=== PATIENT | female | born 1990 | race Caucasian/White ===

== ENCOUNTER → 2020-03-19 14:08 | Outpatient (CLI) | payer OTHER, SELFPAY ==
[2020-03-19 15:46] LABS: Absolute Lymphocyte Count 1.75 X10^3/uL (0.83-4.51); Absolute Neutrophil Count 8.5 X10^3/uL (2.0-7.7); Basophil# 0.04 X10^3/uL; Basophil% 0.4 % (0-1); Eosinophil# 0.08 X10^3/uL; Eosinophils% 0.7 % (0-5); Hematocrit 38.2 % (37-47); Lymphocyte # 1.75 X10^3/ul (4.0); Lymphocyte % 15.5 % (19-41); Mean Corpuscular Volume 85.1 fL (81-99); Mean Platelet Vol. 10.6 fl (6.2-12.0); Monocyte# 0.82 X10^3/uL; Monocyte% 7.3 % (0-10); NRBC Flagged by Analyzer 0 % (0-5); Neutrophil # 8.54 X10^3/uL (2.7-7.7); Neutrophil % 75.8 % (47-70); Platelet Count 263 K/mm3 (150-450); RBC Distribution Width CV 12.7 % (11.6-14.6); RBC Distribution Width SD 38.6 fl (35.1-43.9); Red Blood Count 4.49 M/mm3 (4.2-5.4); White Blood Count 11.3 K/mm3 (4.4-11.0)
[2020-03-19 15:49] LABS: Color, Urine Yellow (Yellow); Glucose, Dipstick Normal (Normal); Ketone-Dipstick Negative (Negative); Leukocyte Esterase-Dipstick Negative /ul (Negative); Nitrite-Dipstick Negative (Negative); Occult Blood-Urine Negative /ul (Negative); Protein-Dipstick Negative (Negative); Urine Bilirubin Dipstick Negative (Negative); Urine Clarity Clear (Clear); Urine Urobilinogen Normal (Normal)
[2020-03-19 16:03] LABS: Thyroid Stim Hormone (TSH) 0.41 uIU/mL (0.358-3.74)
[2020-03-19 21:57] LABS: Chlamydia Trachomatis by PCR Negative (Negative); Neisserai gonorrhoeae by PCR Negative (Negative); Probe Check PASS; Sample Adequacy Control PASS; Specimen Processing Control PASS
[2020-03-20 09:38] LABS: HIV - WCH Non-Reactive (Nonreactive); Hepatitis B Surface Antigen Non-Reactive (Nonreactive); Hepatitis C Antibody Non-Reactive (Nonreactive); Rubella IgG 302.2 IU/mL
[2020-03-21 21:57] LABS: Prenatal RPR NONREACTIVE (NONREACTIVE)
[2020-03-26 05:30] LABS: HPV Reflexed? NOT INDICATED
== END ==
PROVIDERS: Visit Provider Obstetrics & Gynecology
DX: Z34.81 Encounter for supervision of other normal pregnancy, first trimester (principal)
CPT/HCPCS: 36415; 81002; 84443; 85025; 86703; 86762; 86803; 87340; 87491; 87591; 88175; G0145

== ENCOUNTER → 2020-08-09 13:41 | Outpatient (CLI) | payer OTHER, SELFPAY ==
[2014-08-31 19:55] VITALS: BMI 25.4
[2020-08-09 15:56] LABS: Hematocrit 36.6 % (37-47); Hemoglobin 12.4 g/dL (12.0-15.0); Mean Corp Hgb Conc 33.9 g/dL (32-36); Mean Corpuscular Hgb 29.5 pg (27.0-32.0); Mean Corpuscular Volume 87.1 fL (81-99); Mean Platelet Vol. 11.2 fl (6.2-12.0); Platelet Count 208 K/mm3 (150-450); RBC Distribution Width CV 12.8 % (11.6-14.6); RBC Distribution Width SD 40.3 fl (35.1-43.9); White Blood Count 12.3 K/mm3 (4.4-11.0)
[2020-08-09 16:16] LABS: Glucose Challenge Gest 1H 50g 91 mg/dL (70-140)
== END ==
PROVIDERS: Visit Provider Obstetrics & Gynecology
DX: Z34.83 Encounter for supervision of other normal pregnancy, third trimester (principal)
CPT/HCPCS: 36415; 82950; 85027; 86850

== ENCOUNTER → 2020-10-11 11:32 | Outpatient (CLI) | payer OTHER, SELFPAY | PROVIDERS: Referring Provider Obstetrics & Gynecology; Visit Provider Obstetrics & Gynecology | DX: Z03.818 Encounter for observation for suspected exposure to other biological agents ruled out (principal) | CPT/HCPCS: 87635; C9803; U0005; U0003 ==

== ENCOUNTER 2020-10-15 09:20 | Inpatient (IN) | payer SELFPAY, OTHER ==
--- NOTE | 2020-10-14 17:12 | PCM.HP.BLA ---
History and Physical Date of Admission: 10/15/20 [facility] [place]ORY AND PHYSICAL (10/14/2020) Name: RILEY DOTY History of This : This is a 30-year-old 2 para 1 who presents for repeat section at 39+ weeks gestation. care has been uneventful. OB Physician: ESTER 's Physician: Rigo Wood ...................................................................... : 1990 Age: 30 Address: [address] [place] [address] Phone: (h) [phone] (o) [phone] Insurance Carrier: [facility] [id number] Emergency Contact: SURINDER [phone] ...................................................................... Final UNA: 10/20/20 By Ultrasound: 9 weeks 2 days PARITY: (G-Total Pregnancies P-Fullterm,Premature,Induced AB,Spont AB, Ectopics, Multiple,Living) UNA CONFIRMATION: By LMP: 01/19/20 Initial Exam: 10/25/20 Final UNA: 10/20/20 OB PROBLEM LIST: AB-NEG!! Complete Previa at 20 weeks 5 days --marginal at 28 weeks Hx of headaches/migraines Prior for stress at 1 cm dilation; considering -- plan repeat ALLERGIES: NKDA MEDICATIONS: Gummies 400 mcg-35 mg-25 mg-5 mg chewable tablet daily SOCIAL HISTORY: Smoking - Never Alcohol Use - denies drinking Diet - moderate, balanced diet Lifestyle - low stress lifestyle and Exercise - regular Job Description - Housewife Illicit Drug Use - denies use of street drugs Sexual Activity - Residence - lives with Place of - [place]. [place] Spouse-Sig Other Name - Surinder Doty Spouse-Sig Other Occupation - [employer] Children Name(s) - Jonah Doty PRIOR DELIVERY HISTORY DEL DATE GEST LAB WT LB WT OZ TYPE ANES LABOR TX 27 Aug 18 41 0 7 3 C-Sec Spinal No ANTEPARTUM FLOW CHART VISIT GE RTC FU F F HI U U DATE WK MD WKS HT PN HR M SS BP ED WT HI GL D EF ST __ ____ ___ __ __ ___ __ __ __ ___ __ __ __ ___ __ Oct JMW 3 38 + + 108/72 sl 164 ne ne Sep JMW 1 36 + + 116/58 sl 162 - - Sep JMW 1 36 + + 102/58 sl 161 tr - 10 Sep JMW 1 34 + + 130/76 sl 160 - - 03 Sep JMW 1 34 + + 110/66 0 159 - - Aug JMW de 104/56 0 156 - - 05 Sep 02 JMW 3 29 + + 120/60 0 156 tr - 07 Jul 29 JMW 4 25 + + 110/80 sl 154 03 Jun 24 JMW 4 20 + + 114/78 sl 151 tr - 13 Apr 16 JMW 6 14 + O 110/64 0 142 tr - ANTEPARTUM NOTE(S): Oct 11 2020: Good FM Oct 04 2020: Good FM Sep 24 2020: LARC Sep 13 2020: Feeling Well, Good FM Sep 06 2020: decreased FM, Ck NST Aug 29 2020: R NST with active FM Aug 09 2020: feeling well. Glucola done and rhogam given. AM Jul 11 2020: feeling well. Glucola given. Jun 07 2020: feeling well., u/s with complete previa Apr 16 2020: some FM COMPREHENSIVE ANTEPARTUM NOTE(S): Sep 24 2020: Riley is here for a PNV. Good FM. SL edema in feet. No concerns voiced at this time. LARC reviewed and declined. No GBS per Dr. Lynn due to repeat . MK Sep 06 2020: Riley is here for a PNV. FM is present, states that she rarely feels kicks. Baby's movements are described as twitches. Denies edema. No other concerns expressed. MK Sep 06 2020: NST for dec FM, reactive, read per Dr. Lynn. AW Aug 29 2020: Riley is here for NST as she has not felt mvmt since last night. She may have felt something on her drive to office? [place] placed on abdomen and FHT's easily auscultated. NST is reactive with active FM and good variability. She will call if any other issues with decreased FM. LMT Apr 16 2020: Riley is here for visit. Concerned with R side pain. States she has R ovarian cyst that causes her discomfort with long distance walking or when doing laundry or other jobs that require lifting. U/S report reviewed with corpus luteal cyst of 2.4 cm. I don't think this should cause signficant discomfort for her, maybe round ligament pain? Exercise as tolerated. Plans trip where she will be doing hiking. Reviewed labs WNL, blood type AB negative and Rhogam at 28 weeks. LMT Apr 05 2020: TELEHEALTH NOB VISIT. Riley is a 29 year old with an UNA of 10/20/2020, current GA is 11 w 5 d. She resides with he , Surinder, and their son who was delivered by C/S in 2013. Past history updated. She states that she does not think that she had much labor at all, my back just hurt, and that the baby had non-reassuring FHT's, so she had a C/S. She is considering trying to have a , but is still uncertain; Riley will discuss this further with Dr. Lynn. Delivery at [facility] is planned and she will breastfeed. She states that she nursed her son initially, but at a week old he had respiratory distress and was on a ventilator at [facility] for several days, and her milk supply was not sufficient after that. Office practice patterns reviewed. labs were drawn at a prior visit. Emergencies/danger signs to report, round ligament pain, reporting a suspected UTI, and common OTC medications approved/not approved for use during reviewed. Riley reports that she is feeling pretty well today, but most days she has N/V. Reviewed measures that may help minimize nausea, including carb rich foods, small frequent meals with protein included throughout the day, adequate water hydration of at least one gallon per 24 hours, motion sickness bracelets, Vitamin B6 50 mg twice a day, and Unisom at bedtime. She states that she took Zofran for nausea with her son, but is not wanting to try this yet. At this point, Riley states that she is unable to take a vitamin; encouraged to try two Children's Tripp's Chewable multivitamins a day until nausea resolves. She states that she will likely decline AFP and CF testing. She states that she has a cousin with special needs, and an aunt and uncle born with heart defects who at ages 16 and 2 days respectively. She states that she has experienced periods of mild depression and anxiety in the past, but feels she is doing well at this time. EPDS on 03/19/2020 = 0. Physical activity and lifting restrictions for reviewed. Water/caloric/dietary needs for discussed, including recommended weight gain, limiting empty calories, limiting caffeine to one cup a day, and food safety. She and her family are planning a trip to [place] this month; reviewed that she needs to make sure she takes rest breaks, stays well hydrated, and COVID 19 precautions reviewed; she will discuss any further restrictions with Dr. Lynn at he next PNV. Riley is a lifelong non-smoker, and denies use of drugs or ETOH. She states that she understands all information provided during 45 minute NOB telephone visit, and has no questions following same. AW New Mar 19 2020: Riley is being seen for missed menses visit. . UPT in office is positive. LMP 01/19/20. Pt is about 8 weeks and 4 days. UNA 10/25/20. Pt has been experiencing nausea and states it is better when she eats a little bit at a time throughout the day. Pt also states about 2-3 years ago she went to [facility] ER due to heart palpitations. She has been experiencing the heart palpitations more since being . She also states that she has been having some cramping. information reviewed and given to pt. Last pap 2014 WNL. Pap and cultures due today. Medications and allergies are up to date. PHQ-9 total is 0. AM Mar 19 2020: ok REVIEW OF SYSTEMS: GENERAL - Denies fever, or chills SKIN - Denies rash, new skin lesions, or change in moles EYES - Denies blurred vision, or change in visual acuity EARS - Denies ear pain, or difficulty hearing NOSE - Denies nasal congestion, discharge, or bleeding MOUTH - Denies sore throat, or difficulty swallowing NECK - Denies pain or swelling RESPIRATORY - Denies shortness of breath, cough, wheezing CARDIOVASCULAR - Denies palpitations, chest pain, orthopnea, PND, peripheral edema, syncope or claudication GASTROINTESTINAL - Denies nausea, vomiting, diarrhea, constipation, Denies abdominal pain, melena and or bright red blood GENITOURINARY - Denies dysuria, frequency of urination, urgency, or hesitancy MUSCULOSKELETAL - Denies joint or muscle pain, or back pain NEUROLOGICAL - Denies localized numbness, weakness, or tingling PSYCHIATRIC - Denies depression, anxiety, substance abuse or suicide attempts ENDOCRINE - Denies heat or cold intolerance, weight loss or gain, increasing thirst HEMATO-IMMUNOLOGIC - Denies easy bruising, bleeding, oral ulcerations or recurrent infections GENETICS SCREENING: Age 35+ years: No Thalassemia: No Neural Tube Defect: No Down Syndrome: No SILVIO-SACHS: No Sickle Cell Disease: No Hemophilia: No Musc. Dystrophy: No Cystic Fibrosis: No-declines screening [place] Chorea: No Mental Retardation: Yes, Cousin Fragile X: No Other genetic: Yes, Uncle/Aunt Heart Defect Other defects: Yes, Uncle/Aunt Heart Defect SABs/still births: No Drugs since LMP: No INFECTION HISTORY: High risk AIDS: No High risk Hepatitis: No Exposed to TB: No Exposed to Herpes: No Rash/viral illness since LMP: No History of STD: No MENSTRUAL HISTORY: *Menses Amount/Duration: 6 daysMenses Regularity: RegularFrequency: monthlyMenarche (Age Onset): 13* PAST SUMMARY: PARITY: 1. Total Pregnancies............ 2 2. Full Term Pregnancies........ 1 3. Premature.................... 0 4. Abortions - Induced.......... 0 5. Abortions - Spontaneous...... 0 6. Ectopics..................... 0 7. Multiple Births.............. 0 8. Living Children.............. 1 PAST #1: Date of :.................. 08/31/14 Gestation Weeks:................ 41 Length of labor(hours):......... 0 Sex:............................ M Weight-lbs:............... 7 Weight-oz:................ 3 Type of Delivery:............... C-Sect Type of Anesthesia:............. Spinal Place of Delivery:.............. [place] Treatment of Labor?:.... No Comment: NRFHT PHYSICAL EXAMINATION General Appearence: 30 yo female in no acute distress Vital Signs: AF, VSS Heart: RRR without rubs or gallops Lungs: CTA x 2 Breasts: deferred Abdomen: gravid Pelvis: Cervix: Presentation: cephalic Station: Fetus: Size: AGA Movement: present Heart: present Labs for : RILEY DOTY since 01/24/2020 ORDER DATEIN DESCRIPTION VALUE UNITS RANGE A+ COMMENT COVID 19, PCR SENDOUT 10/11/20 NOTE Original Ordering Provider: Reina Lynn COVID-19,PCR Not Detected Not Detected This nucleic acid amplification test was developed and its performance characteristics determined by [facility]. Nucleic acid amplification tests include PCR and TMA. This test has not been FDA cleared or approved. This test has been authorized by FDA under an Emergency Use Authorization (EUA). This test is only authorized for the duration of time the declaration that circumstances exist justifying the authorization of the emergency use of in vitro diagnostic tests for detection of SARS-CoV-2 virus and/or diagnosis of COVID-19 infection under section 564(b)(1) of the Act, 21 U.S.C. 360bbb-3(b) (1), unless the authorization is terminated or revoked sooner. When diagnostic testing is negative, the possibility of a false negative result should be considered in the context of a patient's recent exposures and the presence of clinical signs and symptoms consistent with COVID-19. An individual without symptoms of COVID-19 and who is not shedding SARS-CoV-2 virus would expect to have a negative (not detected) result in this assay. ANTIBODY SCREEN 08/09/20 [facility]~[address] [place], [address]~ ANTIBODY SCREEN NEGATIVE N Reviewed by REINA GLUCOSE CHALLENGE GEST 1H 50G 08/09/20 NOTE Original Ordering Provider: Reina Lynn GLU GEST 50G 1H 91 mg/dL 70-140 Reviewed by REINA CBC-COMPLETE BLOOD CNT NO DIFF 08/09/20 NOTE Original Ordering Provider: Reina Lynn WBC 12.3 K/mm3 4.4-11.0 H RBC 4.20 M/mm3 4.2-5.4 HGB 12.4 g/dL 12.0-15.0 HCT 36.6 % 37-47 L MCV 87.1 fL 81-99 MCH 29.5 pg 27.0-32.0 MCHC 33.9 g/dL 32-36 RDW CV 12.8 % 11.6-14.6 RDW SD 40.3 fl 35.1-43.9 PLT 208 K/mm3 150-450 MPV 11.2 fl 6.2-12.0 Reviewed by REINA RPR 03/19/20 NOTE Original Ordering Provider: Reina Lynn RPR NONREACTIVE NONREACTIVE Reviewed by REINA HEPATITIS C ANTIBODY 03/19/20 NOTE Original Ordering Provider: Reina Lynn HEPATITIS C AB Non-Reactive Nonreactive Non Reactive: < 0.8 Equivocal: >/= 0.8 to < 1.0 Reactive: >/= 1.0 The CDC recommends that a reactive/equivocal HCV antibody result be followed up by the HCV Nucleic Acid Amplification test (375954) Reviewed by REINA HEPATITIS B SURFACE ANTIGEN 03/19/20 NOTE Original Ordering Provider: Reina Lynn HEPB SURFACE AG Non-Reactive Nonreactive Reviewed by REINA HIV - [facility] 03/19/20 NOTE Original Ordering Provider: Reina Lynn HIV - [facility] Non-Reactive Nonreactive Reviewed by REINA RUBELLA IGG 03/19/20 NOTE Original Ordering Provider: Reina Lynn RUBELLA IGG 302.2 IU/mL Antibody results Interpretation of Immune Status < 5 IU/ml Presumed Non-immune 5 - < 10 IU/ml Equivocal > or = 10 IU/ml Presumed Immune Reviewed by REINA T AND S-NO CHARGE W/PNP 03/19/20 Reason for Type AND Screen/Red Cells: Surgery? N [facility]~[address] [place], [address]~ BLOOD TYPE GEL AB NEGATIVE N AB SCREEN GEL NEGATIVE N Reviewed by REINA THYROID STIM HORMONE (TSH) 03/19/20 NOTE Original Ordering Provider: Reina Lynn TSH 0.41 uIU/mL 0.358-3.74 Reviewed by REINA URINALYSIS, ROUTINE (DIPSTICK) 03/19/20 NOTE Original Ordering Provider: Reina Lynn COLOR Yellow Yellow CLARITY Clear Clear GLUCOSE, UR Normal mg/dl Normal BILIRUBIN URINE Negative mg/dL Negative KETONE UR Negative mg/dl Negative SP.GR. DIPSTX 1.020 1.002-1.030 PH UR 6.0 5.0 - 8.0 PROT DIPSTX Negative mg/dl Negative UROBILI Normal mg/dl Normal NITRITE UR Negative Negative OCCULT BLOOD-UR Negative /ul Negative LEUK ESTERASE Negative /ul Negative Reviewed by REINA CBC W/DIFF, AUTOMATED 03/19/20 NOTE Original Ordering Provider: Reina Lynn WBC 11.3 K/mm3 4.4-11.0 H RBC 4.49 M/mm3 4.2-5.4 HGB 13.0 g/dL 12.0-15.0 HCT 38.2 % 37-47 MCV 85.1 fL 81-99 MCH 29.0 pg 27.0-32.0 MCHC 34.0 g/dL 32-36 RDW CV 12.7 % 11.6-14.6 RDW SD 38.6 fl 35.1-43.9 PLT 263 K/mm3 150-450 MPV 10.6 fl 6.2-12.0 NEUT% 75.8 % 47-70 H LY% 15.5 % 19-41 L MONO% 7.3 % 0-10 EO% 0.7 % 0-5 BASO% 0.4 % 0-1 IM GRAN % 0.300 % 0.0-0.9 IG% - Immature Granulocytes (promyelocytes, myelocytes and metamyelocytes) > 1% indicates that a LEFT SHIFT is Present. ABSOLUTE NEUT 8.5 X10 3/uL 2.0-7.7 H ABSOLUTE LYMPH 1.75 X10 3/uL 0.83-4.51 NRBC, FLAGGED 0 % 0-5 Reviewed by REINA HERNANDEZ IG W/REFLEX HR HPV APTIMA 03/19/20 NOTE Original Ordering Provider: Reina Lynn DIAGN . NEGATIVE FOR INTRAEPITHELIAL LESION OR MALIGNANCY. ADEQ . Satisfactory for evaluation. Endocervical and/or squamous metaplastic cells (endocervical component) are present. PERFORM . Michelle Kat, Tower Truck Driver (ASCP) TEST METHOD . This liquid based ThinPrep(R) pap test was screened with the use of an image guided system. COMM . . PAPSMR . The Pap smear is a screening test designed to aid in the detection of premalignant and malignant conditions of the uterine cervix. It is not a diagnostic procedure and should not be used as the sole means of detecting cervical cancer. Both false-positive and false-negative reports do occur. HPV RFLX . The HPV DNA reflex criteria were not met with this specimen result therefore, no HPV testing was performed. Performed at: [facility] [id number] Science Liaison: Nasrin Almonte MD, Phone: [phone] Reviewed by REINA GOLD/ELISEO [facility] BY PCR 03/19/20 NOTE Original Ordering Provider: [facility]ina Lynn [facility] PCR Negative Negative NG BY PCR Negative Negative Reviewed by REINA Impression /Plan: 39+ week intrauterine with a prior section. Plan repeat . Preparations in progress for delivery.
[2020-10-15] VITALS (18 sets, daily range): BP systolic 96–121; BP diastolic 44–74; PULSE 60–94; RESP 16–76; TEMP 36.3–36.9; O2SAT 94–100; BMI 29.5
[2020-10-15] MEDS: Lactated Ringers 1,000 ML 999 ML IV (10:10)
[2020-10-15 10:23] LABS: Absolute Lymphocyte Count 1.52 X10^3/uL (0.83-4.51); Absolute Neutrophil Count 10.8 X10^3/uL (2.0-7.7); Basophil# 0.02 X10^3/uL; Basophil% 0.1 % (0-1); Eosinophil# 0.11 X10^3/uL; Eosinophils% 0.8 % (0-5); Hematocrit 36.6 % (37-47); Hemoglobin 12.6 g/dL (12.0-15.0); Lymphocyte # 1.52 X10^3/ul (4.0); Lymphocyte % 11.3 % (19-41); Mean Corp Hgb Conc 34.4 g/dL (32-36); Mean Corpuscular Hgb 29.1 pg (27.0-32.0); Mean Corpuscular Volume 84.5 fL (81-99); Mean Platelet Vol. 11.3 fl (6.2-12.0); Monocyte# 0.95 X10^3/uL; Monocyte% 7.1 % (0-10); NRBC Flagged by Analyzer 0 % (0-5); Neutrophil # 10.75 X10^3/uL (2.7-7.7); Neutrophil % 80.1 % (47-70); Platelet Count 222 K/mm3 (150-450); RBC Distribution Width CV 13.4 % (11.6-14.6); RBC Distribution Width SD 41.4 fl (35.1-43.9); Red Blood Count 4.33 M/mm3 (4.2-5.4); White Blood Count 13.4 K/mm3 (4.4-11.0)
[2020-10-15] MEDS: Acetaminophen 500 MG Tablet 1000 MG PO ×2 (10:46→20:33)
[2020-10-15] MEDS: Lactated Ringers 1,000 ML 150 ML IV (11:13)
[2020-10-15] MEDS: Sodium Citrate/Citric Acid 30 ML UDC PO (11:53)
[2020-10-15] MEDS: Cefazolin 2 GM in 0.9% Normal Saline 100 ML IV (12:00)
--- NOTE | 2020-10-15 12:08 | PCM.OPRPT ---
Delivery Classification: Scheduled Final UNA: 10/20/20 Final UNA Source: US <20 weeks Gestational age: 39 Weeks and 2 Days specification manager: Oswald Porter Type of Anesthesia:: Spinal - with Duramorph Implants Used: None Date of Procedure: 10/15/20 Pre-Operative Diagnosis: Prior Section Post-Operative Diagnosis: Prior Section Description of Procedure: Surgeon: Hector Lynn MD, FACOG Anesthesia: Héctor Sahni CRNA Procedure: Repeat Low Transverse Cervical Caesarean Section Findings: Viable male with Apgars of 8/9 in transverse back down lie with shoulder presentation delivered cephalic with clear amniotic fluid and normal three-vessel placenta. Indication: This is a 30-year-old who presents for her second at 39+ weeks gestation. care has otherwise been uneventful. The patient has been counseled regarding the risk and indications of this procedure including the possibility of bleeding infection and injury to surrounding structures such as bowel bladder. All questions were answered. Procedure: Patient was taken to the operating room where after spinal anesthesia was placed, the patient was prepped and draped in usual sterile fashion and a Lbaoy catheter was placed. The abdomen was entered through the patient's prior Pfannenstiel incision and peritoneum was entered bluntly. After developing a bladder flap on the lower uterine segment a low transverse incision was made on the uterus and head was delivered onto the operative field the nose mouth and oropharynx were bulb suctioned. Subsequently a viable male was born with Apgars of 8/9. The infant was noted to cry move all extremities vigorously on the operative field. The umbilical cord was doubly clamped and ligated and handed to the nursery personnel who were present for the delivery. Placenta was delivered and noted to be 3 vessels and normal. Uterus was exteriorized and remaining placental tissue was removed. The uterus was then closed in 2 layers first with running locked 0 Vicryl suture followed by a second imbricating layer with 0 Vicryl suture. 0 Vicryl suture was then used in a horizontal mattress interrupted fashion to affect final hemostasis of the uterine incision line. Normal fallopian tubes and ovaries were visualized and the uterus was returned to the pelvis. Hemostasis was noted and rectus abdominis muscles were reapproximated in the midline with interrupted Number 0 Vicryl suture in a horizontal mattress fashion. Fascia was closed with running Number 1 PDS Strata fix suture. Subcutaneous tissue was irrigated with copious amounts of saline solution and then closed with running 3-0 Vicryl suture. Skin was closed with 4-0 monocryl suture in a running subcuticular fashion. Steri strips and a Mepilex dressing were placed across the incision. The patient tolerated the procedure well and was taken to the recovery room in satisfactory condition. Sponge, needle, and instrument counts were all reportedly correct. EBL was less than 500 cc. Ancef 2 gms IV was given prior to the procedure. Spicemen to Pathology: None Complications: None Amniotic Fluid Description: Clear Placenta [facility]position: [facility] Drain: [place] to straight drain Fluids Replaced: Crystalloid Cord Entanglement: None Cord Vessel Description: 3 Vessels Esitmated Blood Loss (ml): 500 cc Gender: Male (1 minute): 8 (5 minute): 9 Antibiotic Given: Ancef 2 grams IV x1 Pt instructed on risks of surgery: Bleeding, Infection, Injury to surrounding structure(s) including bowel and bladder Complications: None - Admit VTE Documentation VTE Present on Admission: Yes VTE Mechan Device Prophylaxis: SCD's
--- NOTE | 2020-10-15 12:11 | DCINST_ITS ---
Discharge Diet: No Restrictions Discharge Activity: May not drive while taking narcotic pain medications., May Shower, May Take a Tub Bath May resume sexual activity in: 4-6 weeks Lifting Restrictions: 20 pounds Additional Activity Instructions:: Nothing in the vagina for 4-6 weeks. You may return to work/school in 6 weeks. Call your doctor if your incision/area has: Continuous Slow Oozing, Sudden Increased Bleeding, Increased Pain/ Swelling, Increased Redness, Foul Smelling Discharge Call your doctor if you observe: Fever of 101 or Higher, Inability to urinate, Inability to have a bowel movement, Using more than one pad per hour Additional Instructions: If you experience any of the following, contact your healthcare provider. * Bleeding that soaks a pad every hour for 2 hours * Fever 100.4 or higher * Unrelieved incision or abdominal pain * Swelling, redness, discharge or bleeding from your incision or episiotomy site * Your incision begins to separate * Problems urinating (including inability to urinate or burning while urinating). * Visual changes * Severe headache * Flu-like symptoms * Pain or redness in one of both of your breasts * Pain, warmth, tenderness or swelling in your legs, especially the calf area * Frequent nausea and vomiting * Symptoms of depression or anxiety If you experience any of the following, call 911 or go to the nearest Emergency Room. * Chest pain * Problems breathing * Seizure activity * Partial or complete paralysis of a body part, slurred speech, weakness or drooping of the face, or a sudden inability to walk or hold your balance Allergies/Adverse Reactions: Allergies No Known Allergies Allergy (Verified 10/15/20 10:01) Medications to take at Discharge Vits [Prenatabs FA ] 1 tablet PO DAILY 08/31/14 Docusate Sodium [Colace] 100 mg PO BID PRN PRN #60 cap 10/15/20 Oxycodone [Oxyir] 5 mg PO Q6H PRN PRN 7 Days #20 tablet 10/15/20 The following prescriptions were given: Docusate Sodium [Colace] 100 mg PO BID PRN PRN #60 cap PRN Reason: Constipation Transmission Status: Pending to [id number] Oxycodone [Oxyir] 5 mg PO Q6H PRN PRN 7 Days #20 tablet PRN Reason: Pain Score 6-10 Transmission Status: Received by [id number] Follow-Up: Call to make an appointment with your doctor for an incision check in 1-2 weeks. You will also need a 6 week post- follow up appointment. Test results from this visit will be discussed in further detail at your follow- up appointment, if applicable. Please Follow Up With: Hector Lynn MD - [phone] When: Call to make an appointment for an incision check in 2 weeks. Primary Care Physician: Care Physician,No Primary [Primary Care Provider] -
[2020-10-15] MEDS: Ketorolac 30 MG/ML Syringe IV ×2 (12:44→17:25)
[2020-10-15] MEDS: Oxytocin 30 units/NS 500 ml 30 UNITS/500 ML IV.SOLN 167 UNITS IV (13:20)
[2020-10-15] MEDS: proCHLORPERazine 10 MG/2 ML Vial IV (14:03)
[2020-10-15] MEDS: Lactated Ringers 1,000 ML 100 ML IV (17:26)
[2020-10-15] MEDS: Cefazolin 1 GM/50 ML BAG IV (20:19)
[2020-10-15] MEDS: 0.9% Saline Lock 10 ML Syringe IV (20:55)
[2020-10-16 00:05] VITALS: BP 103/73; PULSE 90; RESP 16; TEMP 36.8; O2SAT 99
[2020-10-16] MEDS: Ketorolac 30 MG/ML Syringe IV ×2 (00:10→05:38)
[2020-10-16] MEDS: 0.9% Saline Lock 10 ML Syringe IV ×2 (00:11→05:38)
[2020-10-16] MEDS: Acetaminophen 500 MG Tablet 1000 MG PO ×4 (02:02→21:17)
[2020-10-16 03:11] VITALS: BP 111/78; PULSE 88; RESP 16; TEMP 36.3
[2020-10-16] MEDS: Cefazolin 1 GM/50 ML BAG IV (04:04)
[2020-10-16 05:51] LABS: Hematocrit 32.7 % (37-47); Hemoglobin 10.9 g/dL (12.0-15.0); Mean Corp Hgb Conc 33.3 g/dL (32-36); Mean Corpuscular Hgb 29.1 pg (27.0-32.0); Mean Corpuscular Volume 87.4 fL (81-99); Mean Platelet Vol. 10.8 fl (6.2-12.0); Platelet Count 200 K/mm3 (150-450); RBC Distribution Width CV 13.7 % (11.6-14.6); RBC Distribution Width SD 43.5 fl (35.1-43.9); Red Blood Count 3.74 M/mm3 (4.2-5.4); White Blood Count 14.8 K/mm3 (4.4-11.0)
--- NOTE | 2020-10-16 08:12 | PN.OBGYN_ITS ---
Subjective: Patient without complaints. Tolerating diet well. Positive flatus. Breast- feeding going well. Will likely wait until tomorrow to go home. Objective: Good urine output. Hemoglobin stable. - Physical Exam Vitals/I&O's: Vital Signs Temp Pulse Resp BP Pulse Ox 97.4 F L 88 16 111/78 99 10/16/20 03:11 10/16/20 03:11 10/16/20 03:11 10/16/20 03:11 10/16/20 00:05 Oxygen Delivery Method Room Air Weight: 167 lb Body Mass Index (BMI) 29.5 Intake and Output for Last 24 Hours 10/14/20 10/15/20 10/16/20 23:59 23:59 23:59 Intake Total 2609.83 / 2609.83 50 / 50 Output Total 700 / 700 200 / 200 Balance 1909.83 / 1909.83 -150 / -150 Laboratory Results 10/15/20 10:11: WBC 13.4 H, RBC 4.33, Hgb 12.6, Hct 36.6 L, MCV 84.5, MCH 29.1, MCHC 34.4, RDW Std Deviation 41.4, RDW Coeff of Javier 13.4, Plt Count 222, MPV 11.3, Immature Gran % (Auto) 0.600, Neut % (Auto) 80.1 H, Lymph % (Auto) 11.3 L, [place] % (Auto) 7.1, Eos % (Auto) 0.8, Baso % (Auto) 0.1, Absolute Neuts (auto) 10.8 H, Absolute Lymphs (auto) 1.52, Nucleated RBC % 0 10/15/20 10:11: Blood Type AB NEGATIVE, Antibody Screen NEGATIVE 10/15/20 15:20: Screen NEGATIVE, Baby's Blood Type B POSITIVE, Baby's WILBER NEGATIVE 10/16/20 05:45: WBC 14.8 H, RBC 3.74 L, Hgb 10.9 L, Hct 32.7 L, MCV 87.4, MCH 29.1, MCHC 33.3, RDW Std Deviation 43.5, RDW Coeff of Javier 13.7, Plt Count 200, MPV 10.8 Current Medications Acetaminophen (Acetaminophen 500 Mg Tablet) 1,000 mg PO Q6H NBA Last Admin: 10/16/20 02:02 Dose: 1,000 mg Documented by: Bisacodyl (Bisacodyl 10 Mg Suppository) 10 mg RECTAL UD PRN PRN Reason: If no BM Diphenhydramine HCl (Diphenhydramine 25 Mg Capsule) 25 mg PO Q6H PRN PRN PRN Reason: ITCHING Stop: 10/16/20 13:22 Hydrocortisone (Hydrocortisone 2.5% Crm) 1 applic TOPICAL TID PRN PRN; Protocol PRN Reason: Discomfort Lactated Ringer's () 1,000 mls @ 100 mls/hr IV .Q10H NBA Last Infusion: 10/16/20 04:43 Dose: Infused Documented by: Ibuprofen (Ibuprofen 600 Mg Tablet) 600 mg PO Q6 NBA Methylergonovine Maleate (Methylergonovine 0.2 Mg/Ml Ampul) 0.2 mg IM X1 PRN PRN Reason: Uterine Atony Nalbuphine HCl (Nalbuphine 10 Mg/Ml Ampul) 5 mg IV Q3H PRN PRN PRN Reason: ITCHING Stop: 10/16/20 13:22 Naloxone HCl (Naloxone 0.4 Mg/Ml Syringe) 0.02 mg IV Q1M PRN PRN Reason: RR <10 and pt unresponsive Ondansetron HCl (Ondansetron 4 Mg/2 Ml Vial) 4 mg IV Q4H PRN PRN PRN Reason: Nausea Oxycodone HCl (Oxycodone 5 Mg Tablet) 5 - 10 mg PO Q4H PRN PRN PRN Reason: Pain Score 4-10 Prochlorperazine Edisylate (Prochlorperazine 10 Mg/2 Ml Vial) 10 mg IV Q6H PRN PRN PRN Reason: NAUSEA Last Admin: 10/15/20 14:03 Dose: 10 mg Documented by: Senna/Docusate Sodium (Senna/Docusate Sodium 1 Tablet) 0 tablet PO DAILY NBA Simethicone (Simethicone 80 Mg Tablet) 80 mg PO PCHS PRN PRN Reason: Indigestion/stomach pain Sodium Chloride (0.9% Saline Lock 10 Ml Syringe) 5 - 15 ml IV UD PRN PRN Reason: SALINE FLUSH Last Admin: 10/16/20 05:38 Dose: 10 ml Documented by: Medical Necessity - Tobacco Use Smoking Status: Never smoker Assessment/Plan Doing well postoperative day #1 status post repeat section. Continuing present care.
[2020-10-16 08:23] VITALS: BP 115/73; PULSE 87; RESP 16; TEMP 36.8; O2SAT 100
[2020-10-16] MEDS: Senna/Docusate Sodium 1 Tablet PO (08:29)
[2020-10-16] MEDS: Ibuprofen 600 MG Tablet PO ×2 (11:26→18:18)
[2020-10-16 14:45] VITALS: BP 116/69; PULSE 93; RESP 16; TEMP 36.9; O2SAT 98
[2020-10-16 20:28] VITALS: BP 102/57; PULSE 89; RESP 16; TEMP 36.6; O2SAT 97
[2020-10-17 00:55] VITALS: BP 108/61; PULSE 89; RESP 16; TEMP 36.3; O2SAT 97
[2020-10-17] MEDS: Ibuprofen 600 MG Tablet PO ×2 (00:57→06:32)
[2020-10-17] MEDS: Acetaminophen 500 MG Tablet 1000 MG PO ×2 (02:27→09:07)
[2020-10-17 08:00] VITALS: BP 104/64; PULSE 86; RESP 16; TEMP 36.5; O2SAT 97
[2020-10-17] MEDS: Senna/Docusate Sodium 1 Tablet PO (09:07)
--- NOTE | 2020-10-17 09:18 | PCM.PN.OB ---
Subjective: Patient without complaints. Tolerating diet well. Minimal vaginal bleeding. Ready to go home. Objective: Wound is clean, dry, intact with Mepilex dressing covering. - Physical Exam Vitals/I&O's: Vital Signs Temp Pulse Resp BP Pulse Ox 97.7 F L 86 16 104/64 97 10/17/20 08:00 10/17/20 08:00 10/17/20 08:00 10/17/20 08:00 10/17/20 08:00 Oxygen Delivery Method Room Air Weight: 167 lb Body Mass Index (BMI) 29.5 Intake and Output for Last 24 Hours 10/15/20 10/16/20 10/17/20 23:59 23:59 23:59 Intake Total 2609.83 / 2609.83 50 / 50 Output Total 700 / 700 200 / 200 Balance 1909.83 / 1909.83 -150 / -150 Current Medications Acetaminophen (Acetaminophen 500 Mg Tablet) 1,000 mg PO Q6H NBA Last Admin: 10/17/20 09:07 Dose: 1,000 mg Documented by: Bisacodyl (Bisacodyl 10 Mg Suppository) 10 mg RECTAL UD PRN PRN Reason: If no BM Hydrocortisone (Hydrocortisone 2.5% Crm) 1 applic TOPICAL TID PRN PRN; Protocol PRN Reason: Discomfort Ibuprofen (Ibuprofen 600 Mg Tablet) 600 mg PO Q6 NBA Last Admin: 10/17/20 06:32 Dose: 600 mg Documented by: Methylergonovine Maleate (Methylergonovine 0.2 Mg/Ml Ampul) 0.2 mg IM X1 PRN PRN Reason: Uterine Atony Naloxone HCl (Naloxone 0.4 Mg/Ml Syringe) 0.02 mg IV Q1M PRN PRN Reason: RR <10 and pt unresponsive Ondansetron HCl (Ondansetron 4 Mg/2 Ml Vial) 4 mg IV Q4H PRN PRN PRN Reason: Nausea Oxycodone HCl (Oxycodone 5 Mg Tablet) 5 - 10 mg PO Q4H PRN PRN PRN Reason: Pain Score 4-10 Prochlorperazine Edisylate (Prochlorperazine 10 Mg/2 Ml Vial) 10 mg IV Q6H PRN PRN PRN Reason: NAUSEA Last Admin: 10/15/20 14:03 Dose: 10 mg Documented by: Senna/Docusate Sodium (Senna/Docusate Sodium 1 Tablet) 0 tablet PO DAILY NBA Last Admin: 10/17/20 09:07 Dose: 2 tablet Documented by: Simethicone (Simethicone 80 Mg Tablet) 80 mg PO PCHS PRN PRN Reason: Indigestion/stomach pain Sodium Chloride (0.9% Saline Lock 10 Ml Syringe) 5 - 15 ml IV UD PRN PRN Reason: SALINE FLUSH Last Admin: 10/16/20 05:38 Dose: 10 ml Documented by: Medical Necessity - Tobacco Use Smoking Status: Never smoker Assessment/Plan Doing well postoperative day #2 status post routine repeat . Will discharge to home with routine instructions.
== END 2020-10-17 11:20 | disposition home or self-care (01) | DRG 788 ==
PROVIDERS: Admitting Provider Obstetrics & Gynecology; Referring Provider Obstetrics & Gynecology; Visit Provider Obstetrics & Gynecology
PROC: 10D00Z1 Extraction of Products of Conception, Low, Open Approach (ICD-10-PCS; CPT 59514; principal; 2020-10-15 11:45)
DX: O34.211 Maternal care for low transverse scar from previous cesarean delivery (principal); Z3A.39 39 weeks gestation of pregnancy; Z37.0 Single live birth
CPT/HCPCS: 85025; 85027; 85461; 86850; 86900; 86901; 90384; 99218; J7120; A4216; G0378; J2405; J2790